=== PATIENT | female | born 1950 | race Caucasian/White ===

== ENCOUNTER 2016-08-13 03:12 | Emergency (ER) | payer OTHER ==
--- NOTE | 2016-08-13 05:01 | ED CLINICAL REPORT ---
Clinical Report - Physicians/Mid Levels Merged With [facility] [address] [place] [place] [address] 08/13/2016 3:24 Patient: BRYAN GIBSON Time Seen: 03:37; initial patient contact. Arrived- By ambulance. Historian- patient. HISTORY OF PRESENT ILLNESS Chief Complaint: FALL. Location of injuries- head and neck. The injury occurred just prior to arrival. Fell and landed on the ground; tripped (Sleep walking). Occurred at home. The patient complains of moderate pain. The patient sustained a moderate blow to the head and complains of mild neck pain. PAST HISTORY Bladder Infections. Kidney Infection. Thyroid Disease. SOCIAL HISTORY Smoker - current status unknown. No alcohol use or drug use. ADDITIONAL NOTES The nursing notes have been reviewed with agreement regarding the chief complaint, PMH and patient medications and allergies. PHYSICAL EXAM Vital Signs: 08/13/2016 03:25 BP: 110/71. HR: 60. RR: 16. O2 saturation: 96%. Temp: 97.7 F. Have been reviewed as normal. Appearance: Alert. Oriented X3. No acute distress. Head: No Barlow's sign or raccoon eyes. Right gnosticist: mild erythema and swelling, moderate tenderness and small ecchymosis of the anterior aspect of the right gnosticist. No laceration or deformity. Eyes: Pupils equal, round and reactive to light. EOM intact. ENT: No dental injury. Pharynx normal. Neck: No pain with movement of head/neck. No muscle spasm in the neck. Painless ROM. No vertebral tenderness. Mild soft tissue tenderness in the left upper, mid and lower neck area. CVS: Heart sounds normal. Pulses normal. Respiratory: No respiratory distress. Breath sounds normal. Back: No tenderness. ROM normal. Skin: Skin intact. Skin warm and dry. Normal skin color. Normal skin turgor. Extremities: Extremities atraumatic. Neuro: Oriented X 3. No motor deficit. No sensory deficit. LABS, X-RAYS, AND EKG CT Head: Normal study. No acute changes. No bony abnormalities, no hemorrhage, no intracranial mass, no midline shift and no hydrocephalus. No atrophy. Head CT performed without contrast. Prior studies were not available for comparison. The study was interpreted by the radiologist and discussed with the radiologist. Interpretation time: 04:46. PROGRESS AND PROCEDURES Course of Care: 08/13/2016 03:25 BP: 110/71. HR: 60. RR: 16. O2 saturation: 96%. Temp: 97.7 F. Vital Signs: have been reviewed as normal. Disposition: Discharged home in good condition. Condition: good. CLINICAL IMPRESSION Single contusion with soft tissue hematoma to the head. INSTRUCTIONS Apply ice for 20 minutes four times a day. Don't apply ice directly to skin. Your Current Medications: CONTINUE TAKING THE FOLLOWING MEDICATIONS: Amitiza Oral. Bactrim Oral. Furosemide Oral. Levothyroxine Sodium Oral. Omeprazole Oral. Oxycodone-Acetaminophen Oral. Follow-up: Follow up with your doctor in about two days. Call for an appointment. Screening today revealed the patient's blood pressure to be in the normal range. (Electronically signed by Maksim Contreras Dr. 08/13/2016 5:04)
--- NOTE | 2016-08-13 05:01 | ED NURSING NOTES ---
Clinical Report - Nurses [facility] [address] [place] [address] 08/13/2016 3:24 Patient: BRYAN GIBSON TRIAGE Triage time 03:Aug 13 2016. Acuity: LEVEL 4. --03:29 Ezio Higgins R.N. 03:25 08/13/16. BP: 110/71. HR: 60. RR: 16. O2 saturation: 96%. Temp: 97.7 F. Pain level now 08/24. --03:29 Ezio Higgins R.N. Acuity: LEVEL 3. --03:52 Ezio Higgins R.N. Chief Complaint: FALL, landed on their head. --05:24 Ezio Higgins R.N. Weight: 47.6 kg estimated. Height/Length: 108 inches Estimated. BMI: 6.3. --03:27 Ezio Higgins R.N. Medications Furosemide Oral. --03:27 Ezio Higgins R.N. Oxycodone-Acetaminophen Oral. --03:28 Ezio Higgins R.N. Levothyroxine Sodium Oral. --03:28 Ezio Higgins R.N. Bactrim Oral. --03:28 Ezio Higgins R.N. Omeprazole Oral. --03:52 Ezio Higgins R.N. Amitiza Oral. --03:52 Ezio Higgins R.N. Allergies Cipro. --03:51 Ezio Higgins R.N. History Arrived by EMS. Historian: patient. ( Pt arrives via ems report of GLF fall while sleep walking. Pt rembers waking up right before falling report of increased stress in life.). SOCIAL HX: No alcohol use or drug use. --03:29 Ezio Higgins R.N. SOCIAL HX: Never smoker. Alcohol use; consumes wine occasionally. No drug use. --03:52 Ezio Higgins R.N. PROBLEMS: Bladder Infections. Kidney Infection. Thyroid Disease. --03:29 Ezio Higgins R.N. Interventions To treatment room. --03:29 Ezio Higgins R.N. ID band on patient. To treatment room. --03:52 Ezio Higgins R.N. PHYSICAL ASSESSMENT GENERAL / NEURO / PSYCH: Alert. Oriented X 4. Appears in no acute distress. HEENT: Pupils equal, round and reactive to light. Head non-tender. RESPIRATORY: Respirations not labored. SKIN: Skin is dry. ( Lower extrem. +2 pitting edema, hot to touch). --03:30 Ezio Higgins R.N. NURSING PROGRESS NOTES No c-collar applied. Not placed on backboard. Patient gowned. Reassurance given. Side rails up x 1. Bed placed in lowest position. Brakes of bed on. --03:30 Ezio Higgins R.N. DISPOSITION / DISCHARGE Departure time: 0507 05:21 Aug 13 2016. Condition at departure: stable. No learning barriers present. Discharge instructions provided and reviewed with the patient. Reviewed medication(s) information. Patient verbalized understanding. Written instructions provided in Chinese. The patient was discharged by the physician. She was discharged home and accompanied by blueprint blocker. She left the Emergency Department ambulatory and via private vehicle. Snap Shearer driving. ( Pt ambulated on discharge steady on her feet pt verbalized understanding of discharge instructions and follow up care). --05:24 Ezio Higgins R.N. 05:11 08/13/16. BP: 101/55. HR: 66. RR: 18. O2 saturation: 97%. Temp: 97.9 F. --05:24 Ezio Higgins R.N. Locked/Released at 08/14/2016 2:59 by Ezio Higgins R.N.
--- NOTE | 2016-08-13 05:01 | ED CLINICAL REPORT ---
Clinical Report - Physicians/Mid Levels Located Within [facility] [address] [place] [place] [address] 08/13/2016 3:24 Patient: BRYAN GIBSON Time Seen: 03:37; initial patient contact. Arrived- By ambulance. Historian- patient. HISTORY OF PRESENT ILLNESS Chief Complaint: FALL. Location of injuries- head and neck. The injury occurred just prior to arrival. Fell and landed on the ground; tripped (Sleep walking). Occurred at home. The patient complains of moderate pain. The patient sustained a moderate blow to the head and complains of mild neck pain. PAST HISTORY Bladder Infections. Kidney Infection. Thyroid Disease. SOCIAL HISTORY Smoker - current status unknown. No alcohol use or drug use. ADDITIONAL NOTES The nursing notes have been reviewed with agreement regarding the chief complaint, PMH and patient medications and allergies. PHYSICAL EXAM Vital Signs: 08/13/2016 03:25 BP: 110/71. HR: 60. RR: 16. O2 saturation: 96%. Temp: 97.7 F. Have been reviewed as normal. Appearance: Alert. Oriented X3. No acute distress. Head: No Barlow's sign or raccoon eyes. Right yazidism: mild erythema and swelling, moderate tenderness and small ecchymosis of the anterior aspect of the right yazidism. No laceration or deformity. Eyes: Pupils equal, round and reactive to light. EOM intact. ENT: No dental injury. Pharynx normal. Neck: No pain with movement of head/neck. No muscle spasm in the neck. Painless ROM. No vertebral tenderness. Mild soft tissue tenderness in the left upper, mid and lower neck area. CVS: Heart sounds normal. Pulses normal. Respiratory: No respiratory distress. Breath sounds normal. Back: No tenderness. ROM normal. Skin: Skin intact. Skin warm and dry. Normal skin color. Normal skin turgor. Extremities: Extremities atraumatic. Neuro: Oriented X 3. No motor deficit. No sensory deficit. LABS, X-RAYS, AND EKG CT Head: Normal study. No acute changes. No bony abnormalities, no hemorrhage, no intracranial mass, no midline shift and no hydrocephalus. No atrophy. Head CT performed without contrast. Prior studies were not available for comparison. The study was interpreted by the radiologist and discussed with the radiologist. Interpretation time: 04:46. PROGRESS AND PROCEDURES Course of Care: 08/13/2016 03:25 BP: 110/71. HR: 60. RR: 16. O2 saturation: 96%. Temp: 97.7 F. Vital Signs: have been reviewed as normal. Disposition: Discharged home in good condition. Condition: good. CLINICAL IMPRESSION Single contusion with soft tissue hematoma to the head. INSTRUCTIONS Apply ice for 20 minutes four times a day. Don't apply ice directly to skin. Your Current Medications: CONTINUE TAKING THE FOLLOWING MEDICATIONS: Amitiza Oral. Bactrim Oral. Furosemide Oral. Levothyroxine Sodium Oral. Omeprazole Oral. Oxycodone-Acetaminophen Oral. Follow-up: Follow up with your doctor in about two days. Call for an appointment. Screening today revealed the patient's blood pressure to be in the normal range. (Electronically signed by Maksim Contreras Dr. 08/13/2016 5:04)
--- NOTE | 2016-08-13 05:01 | ED NURSING NOTES ---
Clinical Report - Nurses [place] [facility] [address] [place] [address] 08/13/2016 3:24 Patient: BRYAN GIBSON TRIAGE Triage time 03:Aug 13 2016. Acuity: LEVEL 4. --03:29 Ezio Higgins R.N. 03:25 08/13/16. BP: 110/71. HR: 60. RR: 16. O2 saturation: 96%. Temp: 97.7 F. Pain level now 08/24. --03:29 Ezio Higgins R.N. Acuity: LEVEL 3. --03:52 Ezio Higgins R.N. Chief Complaint: FALL, landed on their head. --05:24 Ezio Higgins R.N. Weight: 47.6 kg estimated. Height/Length: 108 inches Estimated. BMI: 6.3. --03:27 Ezio Higgins R.N. Medications Furosemide Oral. --03:27 Ezio Higgins R.N. Oxycodone-Acetaminophen Oral. --03:28 Ezio Higgins R.N. Levothyroxine Sodium Oral. --03:28 Ezio Higgins R.N. Bactrim Oral. --03:28 Ezio Higgins R.N. Omeprazole Oral. --03:52 Ezio Higgins R.N. Amitiza Oral. --03:52 Ezio Higgins R.N. Allergies Cipro. --03:51 Ezio Higgins R.N. History Arrived by EMS. Historian: patient. ( Pt arrives via ems report of GLF fall while sleep walking. Pt rembers waking up right before falling report of increased stress in life.). SOCIAL HX: No alcohol use or drug use. --03:29 Ezio Higgins R.N. SOCIAL HX: Never smoker. Alcohol use; consumes wine occasionally. No drug use. --03:52 Ezio Higgins R.N. PROBLEMS: Bladder Infections. Kidney Infection. Thyroid Disease. --03:29 Ezio Higgins R.N. Interventions To treatment room. --03:29 Ezio Higgins R.N. ID band on patient. To treatment room. --03:52 Ezio Higgins R.N. PHYSICAL ASSESSMENT GENERAL / NEURO / PSYCH: Alert. Oriented X 4. Appears in no acute distress. HEENT: Pupils equal, round and reactive to light. Head non-tender. RESPIRATORY: Respirations not labored. SKIN: Skin is dry. ( Lower extrem. +2 pitting edema, hot to touch). --03:30 Ezio Higgins R.N. NURSING PROGRESS NOTES No c-collar applied. Not placed on backboard. Patient gowned. Reassurance given. Side rails up x 1. Bed placed in lowest position. Brakes of bed on. --03:30 Ezio Higgins R.N. DISPOSITION / DISCHARGE Departure time: 0507 05:21 Aug 13 2016. Condition at departure: stable. No learning barriers present. Discharge instructions provided and reviewed with the patient. Reviewed medication(s) information. Patient verbalized understanding. Written instructions provided in Malay. The patient was discharged by the physician. She was discharged home and accompanied by box coverer hand. She left the Emergency Department ambulatory and via private vehicle. Teacher [employer] driving. ( Pt ambulated on discharge steady on her feet pt verbalized understanding of discharge instructions and follow up care). --05:24 Ezio Higgins R.N. 05:11 08/13/16. BP: 101/55. HR: 66. RR: 18. O2 saturation: 97%. Temp: 97.9 F. --05:24 Ezio Higgins R.N. Locked/Released at 08/14/2016 2:59 by Ezio Higgins R.N.
--- NOTE | 2016-08-13 05:01 | ED ORDER SUMMARY ---
..... Patient: BRYAN GIBSON OrderSheet [facility] VisitID: [id number] [address] [place] [address] 65y, F Registration Date/Time: 08/13/2016 ORDER SHEET Weight: 47.6 kg (estimated) Allergies: Cipro GENERAL ORDERS: CT Head wo Cont Urgent (03:59 08/13/2016 Tong Moreno) (Ack 4:01 Bo Limon) MEDICATION ORDERS: IV FLUIDS: ORDER SHEET NOTES: [Electronically signed by Maksim Contreras Dr. (05:04 08/13/2016)] [Electronically signed by Ezio Higgins R.N. (02:59 08/14/2016)] [Electronically locked/signed by Ezio Higgins R.N. (02:59 08/14/2016)]
--- NOTE | 2016-08-13 05:01 | ED ORDER SUMMARY ---
..... Patient: BRYAN GIBSON OrderSheet [facility] VisitID: [id number] [address] [place] [address] 65y, F Registration Date/Time: 08/13/2016 ORDER SHEET Weight: 47.6 kg (estimated) Allergies: Cipro GENERAL ORDERS: CT Head wo Cont Urgent (03:59 08/13/2016 Tong Moreno) (Ack 4:01 Bo Limon) MEDICATION ORDERS: IV FLUIDS: ORDER SHEET NOTES: [Electronically signed by Maksim Contreras Dr. (05:04 08/13/2016)] [Electronically signed by Ezio Higgins R.N. (02:59 08/14/2016)] [Electronically locked/signed by Ezio Higgins R.N. (02:59 08/14/2016)]
--- NOTE | 2016-08-13 07:14 | DIAGNOSTIC IMAGING REPORT ---
PROCEDURE: CT HEAD WITHOUT CONTRAST INDICATION: Ground level fall with head injury, initial encounter TECHNIQUE: Noncontrast axial images with sagittal and coronal reformations. COMPARISON: None. FINDINGS: Sulci, ventricular system, and brain parenchyma are normal. No evidence of acute intracranial process. Visualized mastoids and sinuses are clear. IMPRESSION: 1. Negative non-enhanced head CT. 2. Preliminary report submitted by Dr. Patel, [facility] radiology
--- NOTE | 2016-08-14 02:59 | ED MAR SUMMARY ---
..... Medication Administration Record [facility] [address], [place] [id number] Patient: BRYAN GIBSON Visit ID: [id number] 65y, F Weight: 47.6 kg Height/Length: 108 in BMI: 6.3 ALLERGIES: Cipro
--- NOTE | 2016-08-14 02:59 | ED DISCHARGE INSTRUCTIONS ---
Patient: BRYAN GIBSON General Instructions [facility] VisitID: [id number] [place] [address] 65y, F Registration Date/Time: 08/13/2016 Single contusion with soft tissue hematoma to the head. INSTRUCTIONS Apply ice for 20 minutes four times a day. Don't apply ice directly to skin. Your Current Medications: CONTINUE TAKING THE FOLLOWING MEDICATIONS: Amitiza Oral. Bactrim Oral. Furosemide Oral. Levothyroxine Sodium Oral. Omeprazole Oral. Oxycodone-Acetaminophen Oral. Follow-up: Follow up with your doctor in about two days. Call for an appointment. Screening today revealed the patient's blood pressure to be in the normal range. ADDITIONAL INFORMATION Contusion,Soft Tissue You have a CONTUSION, which is a bruise with swelling and some bleeding under the skin. There are no broken bones. This injury takes a few days to a few weeks to heal. Home Care: 1) Keep the injured part elevated to reduce pain and swelling. This is especially important during the first 48 hours. 2) Make an ice pack (ice cubes in a plastic bag, wrapped in a towel) and apply for 20 minutes every 1-2 hours the first day. Continue this 3-4 times a day until the pain and swelling goes away. 3) You may use acetaminophen (Tylenol) or ibuprofen (Motrin, Advil) to control pain, unless another pain medicine was prescribed. [ NOTE : If you have chronic liver or kidney disease or ever had a stomach ulcer or GI bleeding, talk with your doctor before using these medicines.] Follow Up with your doctor or this facility if you are not improving within the next THREE days. [NOTE: If X-rays were taken, they will be reviewed by a radiologist. You will be notified of any new findings that may affect your care.] Get Prompt Medical Attention if any of the following occur: -- Pain or swelling increases -- Injured arm or leg becomes cold, blue, numb or tingly -- Redness, warmth or drainage from the skin You have been given the following additional information: Contusion, Soft Tissue (Electronically signed by Maksim Contreras Dr. 08/13/2016 5:04)
--- NOTE | 2016-08-14 02:59 | ED DISCHARGE INSTRUCTIONS ---
Patient: BRYAN GIBSON General Instructions Merged With [facility] VisitID: [id number] [place] [address] 65y, F Registration Date/Time: 08/13/2016 Single contusion with soft tissue hematoma to the head. INSTRUCTIONS Apply ice for 20 minutes four times a day. Don't apply ice directly to skin. Your Current Medications: CONTINUE TAKING THE FOLLOWING MEDICATIONS: Amitiza Oral. Bactrim Oral. Furosemide Oral. Levothyroxine Sodium Oral. Omeprazole Oral. Oxycodone-Acetaminophen Oral. Follow-up: Follow up with your doctor in about two days. Call for an appointment. Screening today revealed the patient's blood pressure to be in the normal range. ADDITIONAL INFORMATION Contusion,Soft Tissue You have a CONTUSION, which is a bruise with swelling and some bleeding under the skin. There are no broken bones. This injury takes a few days to a few weeks to heal. Home Care: 1) Keep the injured part elevated to reduce pain and swelling. This is especially important during the first 48 hours. 2) Make an ice pack (ice cubes in a plastic bag, wrapped in a towel) and apply for 20 minutes every 1-2 hours the first day. Continue this 3-4 times a day until the pain and swelling goes away. 3) You may use acetaminophen (Tylenol) or ibuprofen (Motrin, Advil) to control pain, unless another pain medicine was prescribed. [ NOTE : If you have chronic liver or kidney disease or ever had a stomach ulcer or GI bleeding, talk with your doctor before using these medicines.] Follow Up with your doctor or this facility if you are not improving within the next THREE days. [NOTE: If X-rays were taken, they will be reviewed by a radiologist. You will be notified of any new findings that may affect your care.] Get Prompt Medical Attention if any of the following occur: -- Pain or swelling increases -- Injured arm or leg becomes cold, blue, numb or tingly -- Redness, warmth or drainage from the skin You have been given the following additional information: Contusion, Soft Tissue (Electronically signed by Maksim Contreras Dr. 08/13/2016 5:04)
--- NOTE | 2016-08-14 02:59 | ED MAR SUMMARY ---
..... Medication Administration Record [facility] [address] [place], [place] [id number] Patient: BRYAN GIBSON Visit ID: [id number] 65y, F Weight: 47.6 kg Height/Length: 108 in BMI: 6.3 ALLERGIES: Cipro
--- NOTE | 2016-08-14 03:00 | ED MED RECONCILIATION SUMMARY ---
Patient: BRYAN GIBSON Medication Reconciliation Report [facility] VisitID: [id number] [address] [place] [address] 65y, F Registration Date/Time: 08/13/2016 Weight: 47.6 kg Height/Length: 108 in. BMI: 6.3 ALLERGIES: Cipro The patient's Home Medications are listed below: CONTINUE TAKING THE FOLLOWING MEDICATIONS: Amitiza Oral Bactrim Oral Furosemide Oral Levothyroxine Sodium Oral Omeprazole Oral Oxycodone-Acetaminophen Oral The source(s) of the original Home Medication information: Not obtained. The following Medications were given to the patient in the Emergency Department: None. The following Medications were prescribed to the patient: None.
--- NOTE | 2016-08-14 03:00 | ED MED RECONCILIATION SUMMARY ---
Patient: BRYAN GIBSON Medication Reconciliation Report [facility] VisitID: [id number] [address] [place] [address] 65y, F Registration Date/Time: 08/13/2016 Weight: 47.6 kg Height/Length: 108 in. BMI: 6.3 ALLERGIES: Cipro The patient's Home Medications are listed below: CONTINUE TAKING THE FOLLOWING MEDICATIONS: Amitiza Oral Bactrim Oral Furosemide Oral Levothyroxine Sodium Oral Omeprazole Oral Oxycodone-Acetaminophen Oral The source(s) of the original Home Medication information: Not obtained. The following Medications were given to the patient in the Emergency Department: None. The following Medications were prescribed to the patient: None.
== END 2016-08-13 05:07 | disposition home or self-care (01) ==
LOC: ED SRH 03:12
DX: S00.83XA Contusion of other part of head, initial encounter (principal); M54.2 Cervicalgia; W01.10XA Fall on same level from slipping, tripping and stumbling with subsequent striking against unspecified object, initial encounter; Y99.9 Unspecified external cause status; Y93.89 Activity, other specified; Y92.009 Unspecified place in unspecified non-institutional (private) residence as the place of occurrence of the external cause; Z79.891 Long term (current) use of opiate analgesic; Z79.2 Long term (current) use of antibiotics; Z88.1 Allergy status to other antibiotic agents

== ENCOUNTER 2016-09-04 14:18 | Emergency (ER) | payer OTHER ==
--- NOTE | 2016-09-04 17:19 | ED NURSING NOTES ---
Clinical Report - Nurses [facility] [address] [place] [address] 09/04/2016 14:21 Patient: BRYAN ODEN TRIAGE Triage time 14:31. Acuity: LEVEL 4. Chief Complaint: (SLEEP DISORDER). 14:32 09/04/16. 14:32 09/04/16. Alert. No acute distress. SEPSIS SCREEN: Sepsis Screen. Negative (no infection suspected/documented). EBONIE COMA SCORE: [place] Coma Scale: 15- eyes open spontaneously (4); best verbal response- oriented x 4 (5); best motor response- obeys commands (6). --14:50 Oscar Noguera R.N. 14:45 09/04/16. BP: 109/76. HR: 62. RR: 14. O2 saturation: 98% on room air. Temp: 98.1 F (oral). --14:50 Oscar Noguera R.N. Weight: 62.1 kg stated. Height/Length: 68 inches Per Patient. BMI: 20.8. --14:32 Oscar Noguera R.N. Medications Amitiza Oral. Bactrim Oral. Furosemide Oral (I ran out of this med). Levothyroxine Sodium Oral. Omeprazole Oral. Oxycodone-Acetaminophen Oral. --14:33 Oscar Noguera R.N. Medication/allergy information source: the patient and patient's family. --14:50 Oscar Noguera R.N. Allergies Cipro. --14:33 Oscar Noguera R.N. History Arrived by EMS. Historian: patient. Accompanied by family. Primary physician ([facility]). 14:32 09/04/16. ( Pt states she cannot tell if she is awake or asleep. Pt states she has been falling.). PAST MEDICAL HX: Immunizations: status is unknown. SOCIAL HX: Never smoker. Occasional alcohol use. No drug use. No infectious disease exposure. ABUSE ASSESSMENT: No report of abuse. FALL RISK ASSESSMENT: Fall risk assessment completed. No fall risk identified. NUTRITIONAL RISK ASSESSMENT: The nutritional risk assessment revealed no deficiencies. FUNCTIONAL ASSESSMENT: Functional assessment: no impairments noted. LEARNING NEEDS ASSESSMENT: The learning needs assessment revealed no barriers. SKIN INTEGRITY ASSESSMENT: Skin integrity risk assessment completed. No skin integrity risk identified. --14:50 Oscar Noguera R.N. PROBLEMS: Contusion. Bladder Infections. Kidney Infection. Thyroid Disease. --14:34 Oscar Noguera R.N. Renal Failure. --14:34 Oscar Noguera R.N. Esophageal Spasms. --14:36 Oscar Noguera R.N. Hydronephrosis. --14:37 Oscar Noguera R.N. ADDITIONAL SURGERIES: no known surgeries. Assessment 14:32 09/04/16. --14:50 Oscar Noguera R.N. Interventions 14:32 09/04/16. 14:32 09/04/16. ID and allergy band on patient. To treatment room. --14:50 Oscar Noguera R.N. PHYSICAL ASSESSMENT 14:35 09/04/16. Ambulatory to room. GENERAL / NEURO / PSYCH: Alert. Oriented X 4. RESPIRATORY: Respirations not labored. CVS: Capillary refill less than 2 seconds. SKIN: Skin is warm and dry. --14:35 Oscar Noguera R.N. 14:37 09/04/16. GI / : ( Pt has a leg bag due to hydronephrosis). --14:37 Oscar Noguera R.N. 14:53 09/04/16. CVS: ( LE bilat 2 plus pitting edema). --14:53 Oscar Noguera R.N. NURSING PROGRESS NOTES 14:35 09/04/16. The plan of care for this patient has been created. court monitor, pulse oximeter and NIBP monitor placed on patient; monitor alarms on. Patient gowned. Head of bed elevated. Reassurance given. Two patient identifiers checked. Call light placed in reach. Side rails up x 2. Bed placed in lowest position. Brakes of bed on. Brakes of chair on. --14:35 Oscar Noguera R.N. 14:35 09/04/16. Patient ready for evaluation- chart flagged and notification provided. --14:35 Oscar Noguera R.N. 15:08 09/04/2016 Site #1 started via IV in the left antecubital space with an 20g angiocath; one attempt. Blood drawn: rainbow set. Labeled in the presence of the patient and sent to the lab. Saline lock flushed with 10 mL saline. --15:08 Oscar Noguera R.N. 15:08 09/04/2016 One (1) unsuccessful IV access attempt including the right antecubital space. Applied bandaid and manual pressure. --15:13 Elvira Naranjo R.N. 16:03 09/04/16. --16:03 Oscar Noguera R.N. 16:03 09/04/16. BP: 116/72. HR: 80. RR: 12. O2 saturation: 100% on room air. --16:03 Oscar Noguera R.N. 16:54 09/04/16. Call light placed in reach. Bed placed in lowest position. Brakes of bed on. ED physician at the patient's bedside. --16:54 Elvira Naranjo R.N. 16:52 09/04/16. BP: 129/74 (regular adult cuff) taken on the left arm, while lying. HR: 73. RR: 14. O2 saturation: 100% on room air. --16:54 Elvira Naranjo R.N. DISPOSITION / DISCHARGE 17:30 09/04/2016 Site #1 removed upon discharge. Catheter intact. Bandage applied. --17:30 Oscar Noguera R.N. 17:30 09/04/16. Condition at departure: improved. The goals identified in the patient's plan of care were met. No learning barriers present. Discharge instructions provided and reviewed with care rep and the patient. Reviewed warnings. Reviewed medication(s). Treatments reviewed. Patient and care rep verbalized understanding. Written instructions provided in Maori. The patient was discharged by the physician. She was discharged home and accompanied by care rep. She left the Emergency Department ambulatory and via private vehicle. Jowl Trimmer driving. FALL RISK ASSESSMENT: Fall risk assessment completed. No fall risk identified. --17:31 Oscar Noguera R.N. 17:29 09/04/16. BP: 128/72. HR: 82. RR: 12. O2 saturation: 99% on room air. Temp: 98.2 F (oral). --17:31 Oscar Noguera R.N. 17:31 09/04/16. Departure time: 17:31. --17:31 Oscar Noguera R.N. Locked/Released at 09/04/2016 17:36 by Oscar Noguera R.N.
--- NOTE | 2016-09-04 17:19 | ED ORDER SUMMARY ---
..... Patient: BRYAN ODEN OrderSheet [facility] VisitID: [id number] [address] [place] [address] 65y, F Registration Date/Time: 09/04/2016 ORDER SHEET Weight: 62.1 kg (stated) Allergies: Cipro GENERAL ORDERS: UA-Culture if indicated Urgent (14:37 09/04/2016 JBoardley R.N. per protocol) (Ack 14:38 KHoerner) (14:45 JBoardley R.N.) Urine Drug Screen Urgent (14:37 09/04/2016 JBoardley R.N. per protocol) (Ack 14:38 KHoerner) (14:45 JBoardley R.N.) Production Specialist (Continuous) (14:51 09/04/2016 JBoardley R.N. per protocol) (14:51 JBoardley R.N.) CBC w Diff Urgent (14:51 09/04/2016 JBoardley R.N. per protocol) (Ack 14:57 KHoerner) (15:08 JBoardley R.N.) CMP Urgent (14:51 09/04/2016 JBoardley R.N. per protocol) (Ack 14:57 KHoerner) (15:08 JBoardley R.N.) Pulse oximeter (14:51 09/04/2016 JBoardley R.N. per protocol) (14:51 JBoardley R.N.) EKG - ER Stat (14:51 09/04/2016 JBoardley R.N. per protocol) (Ack 14:57 KHoerner) (Cancelled: Other15:01 JBoardley R.N.) Vitals (14:51 09/04/2016 JBoardley R.N. per protocol) (14:51 JBoardley R.N.) MEDICATION ORDERS: IV FLUIDS: IV Saline Lock (14:51 09/04/2016 JBoardley R.N. per protocol) (Ack 14:52 JBoardley R.N.) (15:08 JBoardley R.N.) ORDER SHEET NOTES: [Electronically signed by Oscar Noguera R.N. (17:36 09/04/2016)] [Electronically signed by Maksim Contreras Dr. (20:50 09/05/2016)] [Electronically locked/signed by Oscar Noguera R.N. (17:36 09/04/2016)]
--- NOTE | 2016-09-04 17:19 | ED CLINICAL REPORT ---
Clinical Report - Physicians/Mid Levels [facility] [address] [place] [address] 09/04/2016 14:21 Patient: BRYAN ODEN Time Seen: 14:50; initial patient contact. Arrived- By ambulance. Historian- patient. HISTORY OF PRESENT ILLNESS Chief Complaint: CHANGED MENTAL STATUS. The patient has been confused. This started several weeks ago and is still present (persistent). It was gradual in onset and has been waxing/waning. No history of chronic dementia. No change in diabetic routine or alcohol recently. History of recent drug use Pt taking 30-40 mg Oxycodone/day. She admits she forgets if she has taken doses all the time. The patient has had a recent fall. Usually is alert and oriented X3 and usually has normal mobility. ("sleepwalking"). Similar symptoms previously: Many times. Recent medical care: The patient was seen recently at this facility in the emergency department. ( Normal w/u, including head CT ~ 2 weeks ago.). REVIEW OF SYSTEMS No fever, headache, head injury, dizziness or difficulty breathing. No blurred vision, nausea or vomiting. All systems otherwise negative, except as recorded above. PAST HISTORY ( Contusion. Bladder Infections. Kidney Infection. Thyroid Disease. Renal Failure. Esophageal Spasms. Hydronephrosis.). Additional Surgeries: no known surgeries. Medications: Amitiza Oral. Bactrim Oral. Furosemide Oral (I ran out of this med). Levothyroxine Sodium Oral. Omeprazole Oral. Oxycodone-Acetaminophen Oral. Allergies: Cipro. SOCIAL HISTORY Never smoker. No alcohol use or drug use. ADDITIONAL NOTES The nursing notes have been reviewed with agreement regarding the chief complaint, PMH and patient medications and allergies. PHYSICAL EXAM Vital Signs: 09/04/2016 14:45 BP: 109/76. HR: 62. RR: 14. O2 saturation: 98%. Temp: 98.1 F. Have been reviewed as normal. Appearance: Alert. No acute distress. Head: Head atraumatic. Eyes: Pupils equal, round and reactive to light. ENT: Normal ENT inspection. Airway intact. Moist mucous membranes. Pharynx normal. Neck: Normal inspection. Neck supple. CVS: Normal heart rate and rhythm. Heart sounds normal. Respiratory: No respiratory distress. Breath sounds normal. Abdomen: Soft and nontender. Skin: Skin warm and dry. Normal skin color. No rash. Extremities: No lower extremity edema. Neuro: Alert. Oriented X 3. Mood/affect normal. Speech normal. Cranial nerves normal (as tested). No cerebellar findings. No motor deficit. No sensory deficit. Reflexes normal. LABS, X-RAYS, AND EKG Laboratory Tests: CBC w Diff: (MILLICENT: 09/04/2016 15:07) ( MsgRcvd 09/04/2016 15:23) Final results Test Result Flag Units (Reference) WHITE BLOOD COUNT 5.7 K/uL (4.5-11.5) RED BLOOD COUNT 3.92 L M/uL (4.00-5.20) HEMOGLOBIN 10.9 L gm/dL (12.0-16.0) HEMATOCRIT 33.8 L % (36.0-46.0) MEAN CELL VOLUME 86 fL (80-100) MEAN CORPUSCULAR HGB 28 pg (26-34) MEAN CORPUSCULAR HGB CONC 32 g/dL (31-37) RED CELL DISTRIBUTION WIDTH 14.8 % (11.6-14.8) PLATELET COUNT 259 K/uL (150-400) NEUTROPHIL % 45.3 L % (50-75) LYMPH % 41.9 H % (25-40) MONO % 9.1 % (3-14) EOSINOPHIL % 3.2 % (0-4) BASOPHIL % 0.5 % (0-2) CMP: (MILLICENT: 09/04/2016 15:07) ( MsgRcvd 09/04/2016 15:43) Final results Test Result Flag Units (Reference) GLUCOSE 85 mg/dL (70-110) BUN 11 mg/dL (7-18) CREATININE 1.0 mg/dL (0.6-1.3) Estimated GFR 58.78 mL/min Estimated GFR- >60 mL/min Note: Persistent reduction over 3 months in eGFR<60 mL/min/1.73 m2 defines CKD. Patients with eGFR values>=60 mL/min/1.73 m2 may also have CKD if evidence ofpersistent proteinuria. Additional information may be foundat www.kidney.org. SODIUM 143 mmol/L (136-145) POTASSIUM 3.5 mmol/L (3.5-5.1) CHLORIDE 106 mmol/L (98-107) CARBON DIOXIDE 27 mmol/L (21-32) CALCIUM 9.0 mg/dL (8.5-10.1) TOTAL PROTEIN 6.9 g/dL (6.4-8.2) ALBUMIN 3.5 g/dL (3.3-5.0) BILIRUBIN, TOTAL 0.2 mg/dL (0.0-1.0) ALKALINE PHOSPHATASE 67 U/L (46-116) AST (SGOT) 12 L U/L (15-37) ALT (SGPT) 20 U/L (12-78) . PROGRESS AND PROCEDURES Disposition: Discharged home in good condition. Condition: good. CLINICAL IMPRESSION Fall on same level by stumbling. INSTRUCTIONS (Discuss weaning your pain medication). Your Current Medications: CONTINUE TAKING THE FOLLOWING MEDICATIONS: Amitiza Oral. Bactrim Oral. Furosemide Oral : I ran out of this med. Levothyroxine Sodium Oral. Omeprazole Oral. Oxycodone-Acetaminophen Oral. Follow-up: Follow up with your doctor in about two days. Call for an appointment. Screening today revealed the patient's blood pressure to be in the normal range. (Electronically signed by Maksim Contreras Dr. 09/05/2016 20:50)
--- NOTE | 2016-09-04 17:19 | ED ORDER SUMMARY ---
..... Patient: BRYAN ODEN OrderSheet [facility] VisitID: [id number] [address] [place] [address] 65y, F Registration Date/Time: 09/04/2016 ORDER SHEET Weight: 62.1 kg (stated) Allergies: Cipro GENERAL ORDERS: UA-Culture if indicated Urgent (14:37 09/04/2016 JBoardley R.N. per protocol) (Ack 14:38 KHoerner) (14:45 JBoardley R.N.) Urine Drug Screen Urgent (14:37 09/04/2016 JBoardley R.N. per protocol) (Ack 14:38 KHoerner) (14:45 JBoardley R.N.) [employer] (Continuous) (14:51 09/04/2016 JBoardley R.N. per protocol) (14:51 JBoardley R.N.) CBC w Diff Urgent (14:51 09/04/2016 JBoardley R.N. per protocol) (Ack 14:57 KHoerner) (15:08 JBoardley R.N.) CMP Urgent (14:51 09/04/2016 JBoardley R.N. per protocol) (Ack 14:57 KHoerner) (15:08 JBoardley R.N.) Pulse oximeter (14:51 09/04/2016 JBoardley R.N. per protocol) (14:51 JBoardley R.N.) EKG - ER Stat (14:51 09/04/2016 JBoardley R.N. per protocol) (Ack 14:57 KHoerner) (Cancelled: Other15:01 JBoardley R.N.) Vitals (14:51 09/04/2016 JBoardley R.N. per protocol) (14:51 JBoardley R.N.) MEDICATION ORDERS: IV FLUIDS: IV Saline Lock (14:51 09/04/2016 JBoardley R.N. per protocol) (Ack 14:52 JBoardley R.N.) (15:08 JBoardley R.N.) ORDER SHEET NOTES: [Electronically signed by Oscar Noguera R.N. (17:36 09/04/2016)] [Electronically signed by Maksim Contreras Dr. (20:50 09/05/2016)] [Electronically locked/signed by Oscar Noguera R.N. (17:36 09/04/2016)]
--- NOTE | 2016-09-04 17:19 | ED NURSING NOTES ---
Clinical Report - Nurses [facility] [address] [place] [address] 09/04/2016 14:21 Patient: BRYAN ODEN TRIAGE Triage time 14:31. Acuity: LEVEL 4. Chief Complaint: (SLEEP DISORDER). 14:32 09/04/16. 14:32 09/04/16. Alert. No acute distress. SEPSIS SCREEN: Sepsis Screen. Negative (no infection suspected/documented). EBONIE COMA SCORE: [place] Coma Scale: 15- eyes open spontaneously (4); best verbal response- oriented x 4 (5); best motor response- obeys commands (6). --14:50 Oscar Noguera R.N. 14:45 09/04/16. BP: 109/76. HR: 62. RR: 14. O2 saturation: 98% on room air. Temp: 98.1 F (oral). --14:50 Oscar Noguera R.N. Weight: 62.1 kg stated. Height/Length: 68 inches Per Patient. BMI: 20.8. --14:32 Oscar Noguera R.N. Medications Amitiza Oral. Bactrim Oral. Furosemide Oral (I ran out of this med). Levothyroxine Sodium Oral. Omeprazole Oral. Oxycodone-Acetaminophen Oral. --14:33 Oscar Noguera R.N. Medication/allergy information source: the patient and patient's family. --14:50 Oscar Noguera R.N. Allergies Cipro. --14:33 Oscar Noguera R.N. History Arrived by EMS. Historian: patient. Accompanied by family. Primary physician ([facility]). 14:32 09/04/16. ( Pt states she cannot tell if she is awake or asleep. Pt states she has been falling.). PAST MEDICAL HX: Immunizations: status is unknown. SOCIAL HX: Never smoker. Occasional alcohol use. No drug use. No infectious disease exposure. ABUSE ASSESSMENT: No report of abuse. FALL RISK ASSESSMENT: Fall risk assessment completed. No fall risk identified. NUTRITIONAL RISK ASSESSMENT: The nutritional risk assessment revealed no deficiencies. FUNCTIONAL ASSESSMENT: Functional assessment: no impairments noted. LEARNING NEEDS ASSESSMENT: The learning needs assessment revealed no barriers. SKIN INTEGRITY ASSESSMENT: Skin integrity risk assessment completed. No skin integrity risk identified. --14:50 Oscar Noguera R.N. PROBLEMS: Contusion. Bladder Infections. Kidney Infection. Thyroid Disease. --14:34 Oscar Noguera R.N. Renal Failure. --14:34 Oscar Noguera R.N. Esophageal Spasms. --14:36 Oscar Noguera R.N. Hydronephrosis. --14:37 Oscar Noguera R.N. ADDITIONAL SURGERIES: no known surgeries. Assessment 14:32 09/04/16. --14:50 Oscar Noguera R.N. Interventions 14:32 09/04/16. 14:32 09/04/16. ID and allergy band on patient. To treatment room. --14:50 Oscar Noguera R.N. PHYSICAL ASSESSMENT 14:35 09/04/16. Ambulatory to room. GENERAL / NEURO / PSYCH: Alert. Oriented X 4. RESPIRATORY: Respirations not labored. CVS: Capillary refill less than 2 seconds. SKIN: Skin is warm and dry. --14:35 Oscar Noguera R.N. 14:37 09/04/16. GI / : ( Pt has a leg bag due to hydronephrosis). --14:37 Oscar Noguera R.N. 14:53 09/04/16. CVS: ( LE bilat 2 plus pitting edema). --14:53 Oscar Noguera R.N. NURSING PROGRESS NOTES 14:35 09/04/16. The plan of care for this patient has been created. road contractor, pulse oximeter and NIBP monitor placed on patient; monitor alarms on. Patient gowned. Head of bed elevated. Reassurance given. Two patient identifiers checked. Call light placed in reach. Side rails up x 2. Bed placed in lowest position. Brakes of bed on. Brakes of chair on. --14:35 Oscar Noguera R.N. 14:35 09/04/16. Patient ready for evaluation- chart flagged and notification provided. --14:35 Oscar Noguera R.N. 15:08 09/04/2016 Site #1 started via IV in the left antecubital space with an 20g angiocath; one attempt. Blood drawn: rainbow set. Labeled in the presence of the patient and sent to the lab. Saline lock flushed with 10 mL saline. --15:08 Oscar Noguera R.N. 15:08 09/04/2016 One (1) unsuccessful IV access attempt including the right antecubital space. Applied bandaid and manual pressure. --15:13 Elvira Naranjo R.N. 16:03 09/04/16. --16:03 Oscar Noguera R.N. 16:03 09/04/16. BP: 116/72. HR: 80. RR: 12. O2 saturation: 100% on room air. --16:03 Oscar Noguera R.N. 16:54 09/04/16. Call light placed in reach. Bed placed in lowest position. Brakes of bed on. ED physician at the patient's bedside. --16:54 Elvira Naranjo R.N. 16:52 09/04/16. BP: 129/74 (regular adult cuff) taken on the left arm, while lying. HR: 73. RR: 14. O2 saturation: 100% on room air. --16:54 Elvira Naranjo R.N. DISPOSITION / DISCHARGE 17:30 09/04/2016 Site #1 removed upon discharge. Catheter intact. Bandage applied. --17:30 Oscar Noguera R.N. 17:30 09/04/16. Condition at departure: improved. The goals identified in the patient's plan of care were met. No learning barriers present. Discharge instructions provided and reviewed with computer science teacher and the patient. Reviewed warnings. Reviewed medication(s). Treatments reviewed. Patient and computer science teacher verbalized understanding. Written instructions provided in Kazakh. The patient was discharged by the physician. She was discharged home and accompanied by computer science teacher. She left the Emergency Department ambulatory and via private vehicle. [employer] driving. FALL RISK ASSESSMENT: Fall risk assessment completed. No fall risk identified. --17:31 Oscar Noguera R.N. 17:29 09/04/16. BP: 128/72. HR: 82. RR: 12. O2 saturation: 99% on room air. Temp: 98.2 F (oral). --17:31 Oscar Noguera R.N. 17:31 09/04/16. Departure time: 17:31. --17:31 Oscar Noguera R.N. Locked/Released at 09/04/2016 17:36 by Oscar Noguera R.N.
--- NOTE | 2016-09-05 20:50 | ED MAR SUMMARY ---
..... Medication Administration Record [facility] [address] [place], [place] [id number] Patient: BRYAN ODEN Visit ID: [id number] 65y, F Weight: 62.1 kg Height/Length: 68 in BMI: 20.8 ALLERGIES: Cipro
--- NOTE | 2016-09-05 20:50 | ED DISCHARGE INSTRUCTIONS ---
Patient: BRYAN ODEN General Instructions [facility] VisitID: [id number] [address] [place] [address] 65y, F Registration Date/Time: 09/04/2016 Fall on same level by stumbling. INSTRUCTIONS (Discuss weaning your pain medication). Your Current Medications: CONTINUE TAKING THE FOLLOWING MEDICATIONS: Amitiza Oral. Bactrim Oral. Furosemide Oral : I ran out of this med. Levothyroxine Sodium Oral. Omeprazole Oral. Oxycodone-Acetaminophen Oral. Follow-up: Follow up with your doctor in about two days. Call for an appointment. Screening today revealed the patient's blood pressure to be in the normal range. ADDITIONAL INFORMATION Fall, Uncertain Cause You have had a fall today. but the cause of your fall is not certain. Falls can occur due to slipping, tripping or losing your balance. A fall can also occur from a fainting spell or seizure. Because the cause of your fall today is not certain, it is possible that a fainting spell or seizure was the cause. This means that it could happen again, without warning. If you fall again, without a cause, then you should return to this facility promptly to have further tests. Otherwise, follow up with your doctor as explained below. Home Care: 1) Rest today and resume your normal activities as soon as you are feeling back to normal. It is best to remain with someone who can check on you for the next 24 hours to watch for another episode of falling. 2) If you were injured during the fall, follow the advice from your doctor regarding care of your injury. 3) If you become light-headed or dizzy, lie down immediately or sit and lean forward with your head down. 4) As a precaution, do not drive a car or operate dangerous equipment, do not take a bath alone (use a shower instead) and do not swim alone until you see your doctor. A condition causing fainting or seizures must be ruled out before resuming these activities. 5)You may use acetaminophen (Tylenol) or ibuprofen (Motrin, Advil) to control pain, unless another pain medicine was prescribed. [ NOTE : If you have chronic liver or kidney disease or ever had a stomach ulcer or GI bleeding, talk with your doctor before using these medicines.] 6) Keep your appointments for any further testing that may have been scheduled for you. Follow Up: Unless, given other advice, call your doctor on the next office day to advise of your fall and to schedule an appointment. Get Prompt Medical Attention if any of the following occur: -- Another unexplained fall -- Dizziness, fainting or seizure -- Severe headache -- Chest pain or shortness of breath -- Palpitations (very rapid or very slow or irregular heart beat) -- Blood in vomit, stools (black or red color) -- Weakness of an arm or leg or one side of the face -- Difficulty with speech or vision You have been given the following additional information: Fall, Uncertain Cause (Electronically signed by Maksim Contreras Dr. 09/05/2016 20:50)
--- NOTE | 2016-09-05 20:50 | ED MAR SUMMARY ---
..... Medication Administration Record [facility] [address] [place], [place] [id number] Patient: BRYAN ODEN Visit ID: [id number] 65y, F Weight: 62.1 kg Height/Length: 68 in BMI: 20.8 ALLERGIES: Cipro
--- NOTE | 2016-09-05 20:50 | ED MED RECONCILIATION SUMMARY ---
Patient: BRYAN ODEN Medication Reconciliation Report [facility] VisitID: [id number] [address] [place] [address] 65y, F Registration Date/Time: 09/04/2016 Weight: 62.1 kg Height/Length: 68 in. BMI: 20.8 ALLERGIES: Cipro The patient's Home Medications are listed below: CONTINUE TAKING THE FOLLOWING MEDICATIONS: Amitiza Oral Bactrim Oral Furosemide Oral, I ran out of this med Levothyroxine Sodium Oral Omeprazole Oral Oxycodone-Acetaminophen Oral The source(s) of the original Home Medication information: patient's family member patient The following Medications were given to the patient in the Emergency Department: None. The following Medications were prescribed to the patient: None.
--- NOTE | 2016-09-05 20:50 | ED MED RECONCILIATION SUMMARY ---
Patient: BRYAN ODEN Medication Reconciliation Report [facility] VisitID: [id number] [address] [place] [address] 65y, F Registration Date/Time: 09/04/2016 Weight: 62.1 kg Height/Length: 68 in. BMI: 20.8 ALLERGIES: Cipro The patient's Home Medications are listed below: CONTINUE TAKING THE FOLLOWING MEDICATIONS: Amitiza Oral Bactrim Oral Furosemide Oral, I ran out of this med Levothyroxine Sodium Oral Omeprazole Oral Oxycodone-Acetaminophen Oral The source(s) of the original Home Medication information: patient's family member patient The following Medications were given to the patient in the Emergency Department: None. The following Medications were prescribed to the patient: None.
== END 2016-09-04 17:31 | disposition home or self-care (01) ==
LOC: ED SRH 14:18
DX: R41.82 Altered mental status, unspecified (principal); Z79.899 Other long term (current) drug therapy; Z88.1 Allergy status to other antibiotic agents
CPT/HCPCS: 90100; 95059

== ENCOUNTER 2016-10-25 23:40 | Emergency (ER) | payer OTHER ==
--- NOTE | 2016-10-26 00:44 | ED ORDER SUMMARY ---
..... Patient: SANTA ODEN OrderSheet [facility] VisitID: [id number] [address] [place] [address] 66y, F Registration Date/Time: 10/25/2016 ORDER SHEET Weight: 64.8 kg (stated) Allergies: Cipro, Latex, Tramadol, Zoloft GENERAL ORDERS: EKG - ER Stat (00:24 10/26/2016 AMcQuoid ER Tech1 per protocol) (0:24 AMcQuoid ER Tech1) MEDICATION ORDERS: IV FLUIDS: Morphine IV 4 mg (HIGH ALERT MEDICATION, NOW) (00:12 10/26/2016 Kayode BALTAZAR) (0:21 Arjun R.N.) ORDER SHEET NOTES: [Electronically signed by Santa Reed MD (10:31 10/29/2016)] [Electronically signed by Rusty Ramirez R.N. (11:10/31/2016)] [Electronically locked/signed by Rusty Ramirez R.N. (11:10/31/2016)]
--- NOTE | 2016-10-26 00:44 | ED CLINICAL REPORT ---
Clinical Report - Physicians/Mid Levels [facility] [address] [place] [address] 10/25/2016 23:41 Patient: SANTA ODEN Time Seen: 23:50. Arrived- By ambulance. Historian- patient and EMS personnel. HISTORY OF PRESENT ILLNESS Chief Complaint: CHEST PAIN. "esophageal spasms". It is described as "pain" and it is described as located in the central chest area. This started just prior to arrival and is still present. Onset during after eating. At its maximum, severity described as moderate. When seen in the E.D., severity described as moderate. Modifying factors. Not worsened by anything. Not relieved by anything. The patient has had nausea. No vomiting, difficulty breathing or diaphoresis. (PT states she has had a problem with this for over 50 years. She states she has been worked up for her heart extensively, and has been told this is her esophagus causing the problem.). Similar symptoms previously: Many times. Recent medical care: Not recently seen/assessed. REVIEW OF SYSTEMS No fever, chills, cough, pedal edema or calf pain. No fainting episodes, headache, sore throat, blurred vision or abdominal pain. No black stools, difficulty with urination, skin rash, enlarged lymph nodes or joint pain. No bloody stools. All systems otherwise negative, except as recorded above. PAST HISTORY Problems: Gastroesophageal Reflux Disease. Fibromyalgia. Hydronephrosis. Esophageal Spasms. Renal Failure. Kidney Infection. Thyroid Disease. Additional Surgeries: Arthroscopy. Bladder reduction. Esophogeal myotomy. Hand surgery. Hysterectomy. Oophorectomy. Reimplantation of right kidney. Reimplantation of ureters bilateral. Total knee replacement left. Tubal Ligation. Medications: Sulfamethoxazole-Trimethoprim Oral. Omeprazole Oral. OxyCODONE HCl Oral. Nitroglycerin Sublingual. Levothyroxine Sodium Oral. Isosorbide Dinitrate Oral. Lasix Oral. Fluticasone Propionate Nasal. Fexofenadine HCl Oral. Allergies: Cipro. Latex. Tramadol. Zoloft. SOCIAL HISTORY Never smoker. Occasional alcohol use. No drug use. ADDITIONAL NOTES The nursing notes have been reviewed. PHYSICAL EXAM Vital Signs: 10/25/2016 23:46 BP: 179/90. HR: 67. RR: 22. O2 saturation: 99%. Temp: 98.4 F. Have been reviewed. Appearance: Alert. Oriented X3. No acute distress. (Pt appears moderately uncomfortable.). Eyes: Pupils equal, round and reactive to light. Eyes normal inspection. ENT: Nose normal. Neck: Normal inspection. CVS: Normal heart rate and rhythm. Heart sounds normal. Pulses normal. Respiratory: No respiratory distress. Breath sounds normal. Abdomen: Soft and nontender. Back: Normal external inspection. Skin: Skin warm and dry. Normal skin color. No rash. Normal skin turgor. Extremities: Extremities exhibit normal ROM. No lower extremity edema. Neuro: Oriented X 3. No motor deficit. No sensory deficit. LABS, X-RAYS, AND EKG Pulse Oximetry: 10/25/2016 23:46 O2 saturation: 99%. (FIO2 - room air). Interpretation: normal. PROGRESS AND PROCEDURES Course of Care: PT declined a cardiac work-up, other than EKG, stating that this has been ruled out multiple times, and with extensive testing. EKG was unremarkable. Pt was given a small dose of morphine, which she states works for her, and was found to be feeling better. Pain was consistent with multiple previous episodes. Patient counseled in person regarding the patient's stable condition, diagnosis and need for follow-up. Concerns were addressed. Old medical records reviewed. Disposition: Discharged. Condition: stable and improved. CLINICAL IMPRESSION Atypical chest pain INSTRUCTIONS Warnings: SEDATIVE MEDICATION: You were given sedative medication during your visit. Do not drive or operate dangerous machinery for 6 hours. GENERAL WARNINGS: Return or contact your physician immediately if your condition worsens or changes unexpectedly, if not improving as expected, or if other problems arise. Your Current Medications: CONTINUE TAKING THE FOLLOWING MEDICATIONS: Fexofenadine HCl Oral. Fluticasone Propionate Nasal. Isosorbide Dinitrate Oral. Lasix Oral. Levothyroxine Sodium Oral. Nitroglycerin Sublingual. Omeprazole Oral. OxyCODONE HCl Oral. Sulfamethoxazole-Trimethoprim Oral. Follow-up: Follow up with your doctor in two days if not better. Understanding of the discharge instructions verbalized by patient. (Electronically signed by Santa Reed MD 10/29/2016 10:31)
--- NOTE | 2016-10-26 00:44 | ED ORDER SUMMARY ---
..... Patient: SANTA ODEN OrderSheet [facility] VisitID: [id number] [address] [place] [address] 66y, F Registration Date/Time: 10/25/2016 ORDER SHEET Weight: 64.8 kg (stated) Allergies: Cipro, Latex, Tramadol, Zoloft GENERAL ORDERS: EKG - ER Stat (00:24 10/26/2016 AMcQuoid ER Tech1 per protocol) (0:24 AMcQuoid ER Tech1) MEDICATION ORDERS: IV FLUIDS: Morphine IV 4 mg (HIGH ALERT MEDICATION, NOW) (00:12 10/26/2016 Kayode BALTAZAR) (0:21 Arjun R.N.) ORDER SHEET NOTES: [Electronically signed by Santa Reed MD (10:31 10/29/2016)] [Electronically signed by Rusty Raimrez R.N. (11:10/31/2016)] [Electronically locked/signed by Rusty Ramirez R.N. (11:10/31/2016)]
--- NOTE | 2016-10-26 00:44 | ED NURSING NOTES ---
Clinical Report - Nurses [facility] [address] [place] [address] 10/25/2016 23:41 Patient: BRYAN ODEN TRIAGE Triage time 23:44. Acuity: LEVEL 3. Chief Complaint: CHEST DISCOMFORT. 23:55 10/25/16. Alert. No acute distress. SEPSIS SCREEN: Sepsis Screen. Negative (no infection suspected/documented). ROSI COMA SCORE: Rosi Coma Scale: 15- eyes open spontaneously (4); best verbal response- oriented x 4 (5); best motor response- obeys commands (6). --23:55 Rusty Ramirez R.N. 23:46 10/25/16. BP: 179/90. HR: 67. RR: 22. O2 saturation: 99% on room air. Temp: 98.4 F (oral). Pain level now 9/10. --23:55 Rusty Ramirez R.N. Weight: 64.8 kg stated. Height/Length: 68 inches Per Patient. BMI: 21.7. --23:48 Rusty Ramirez R.N. Medications Fexofenadine HCl Oral. --23:49 Rusty Ramirez R.Migel. Fluticasone Propionate Nasal. --23:49 Rusty Ramirez R.N. Lasix Oral. --23:49 Rusty Ramirez R.N. Isosorbide Dinitrate Oral. --23:49 Rusty Ramirez R.N. Levothyroxine Sodium Oral. --23:49 Rusty Ramirez R.N. Nitroglycerin Sublingual. --23:49 Rusty Ramirez R.N. OxyCODONE HCl Oral. --23:49 Rusty Ramirez R.N. Omeprazole Oral. --23:50 Rusty Ramirez R.N. Sulfamethoxazole-Trimethoprim Oral. --23:50 Rusty Ramirez R.N. Allergies Cipro. --23:50 Rusty Ramirez R.N. Latex. --23:50 Rusty Ramirez R.N. Tramadol. --23:50 Rusty Ramirez R.N. Zoloft. --23:50 Rusty Ramirez R.N. Medication/allergy information source: the patient. --23:55 Rusty Ramirez R.N. History ( pt states she has esophageal spasms and states this episode feels like all her previous episodes of esophageal spasms. Nitro x6 at home with no relief.). This started just prior to arrival. This is a recurrent problem. (1015PM). Treatment TECHNICAL SOLUTIONS CONSULTANT: (6 NITRO). BP: 130/p. HR: 72. O2 saturation: 99 % room air. Upon arrival patient awake. SOCIAL HX: Never smoker. Occasional alcohol use. No drug use. ABUSE ASSESSMENT: No report of abuse. FALL RISK ASSESSMENT: Fall risk assessment completed. No fall risk identified. NUTRITIONAL RISK ASSESSMENT: The nutritional risk assessment revealed no deficiencies. FUNCTIONAL ASSESSMENT: Functional assessment: no impairments noted. LEARNING NEEDS ASSESSMENT: The learning needs assessment revealed no barriers. SKIN INTEGRITY ASSESSMENT: Skin integrity risk assessment completed. No skin integrity risk identified. --23:55 Rusty Ramirez R.N. PROBLEMS: Fall. Hydronephrosis. Esophageal Spasms. Renal Failure. Contusion. Bladder Infections. Kidney Infection. Thyroid Disease. --23:54 Rusty Ramirez R.N. Gastroesophageal Reflux Disease. Fibromyalgia. --00:00 Rusty Ramirez R.N. ADDITIONAL SURGERIES: Arthroscopy. Bladder reduction. Esophogeal myotomy. Hand surgery. Hysterectomy. Oophorectomy. Reimplantation of right kidney. Reimplantation of ureters bilateral. Total knee replacement left. Tubal Ligation. --23:54 Rusty Ramirez R.N. Interventions ID band on patient. To treatment room. --23:55 Rusty Ramirez R.N. PHYSICAL ASSESSMENT 23:56 10/25/16. To room via stretcher. GENERAL / NEURO / PSYCH: Alert. Oriented X 4. Appears in no acute distress. RESPIRATORY: Respirations not labored. CVS: Pulses within normal limits. Capillary refill less than 2 seconds. GI / : Abdomen soft. SKIN: Skin is warm and dry. --23:56 Rusty Ramirez R.N. NURSING PROGRESS NOTES 23:59 10/25/16. The plan of care for this patient has been created. Patient gowned. Head of bed elevated. Call light placed in reach. Bed placed in lowest position. Patient ready for evaluation- chart flagged and ED physician notified. --23:59 Rusty Ramirez R.N. 00:06 10/26/2016 Site #1 started prior to arrival by EMS via IV in the right forearm with an 20g angiocath, with aseptic technique and good blood return; one attempt. Saline lock flushed with 10 mL saline. --00:21 Rusty Ramirez R.N. 00:16 10/26/2016 Morphine IVP 4 mg given over 2 minute(s) via site #1. Allergies verified, confirmed 5 rights and sedative warning given to the patient. IV patency established. IV site checked: no pain, redness, or swelling. IV flushed thoroughly pre- and post-medication administration. IVP given by RN. --00:21 Rusty Ramirez R.N. DISPOSITION / DISCHARGE 00:47 10/26/2016 Site #1 removed upon discharge. Catheter intact. Bandage applied. --00:52 Rusty Ramirez R.N. 00:53 10/26/16. Departure time: 0053. Cardiac rhythm: normal sinus rhythm. Condition at departure: unchanged and stable. No learning barriers present. Patient verbalized understanding. Written instructions provided in French. The patient was discharged by the physician. She was discharged home and accompanied by [facility] called for pt. She left the Emergency Department via ([employer]). --00:53 Rusty Ramirez R.N. 00:52 10/26/16. BP: 117/75. HR: 65. RR: 20. O2 saturation: 98% on room air. Pain level now 6/10. --00:53 Rusty Ramirez R.N. Locked/Released at 10/31/2016 11:05 by Rusty Ramirez R.N.
--- NOTE | 2016-10-26 00:44 | ED NURSING NOTES ---
Clinical Report - Nurses [facility] [address] [place] [address] 10/25/2016 23:41 Patient: BRYAN ODEN TRIAGE Triage time 23:44. Acuity: LEVEL 3. Chief Complaint: CHEST DISCOMFORT. 23:55 10/25/16. Alert. No acute distress. SEPSIS SCREEN: Sepsis Screen. Negative (no infection suspected/documented). ROSI COMA SCORE: Rosi Coma Scale: 15- eyes open spontaneously (4); best verbal response- oriented x 4 (5); best motor response- obeys commands (6). --23:55 Rusty Ramirez R.N. 23:46 10/25/16. BP: 179/90. HR: 67. RR: 22. O2 saturation: 99% on room air. Temp: 98.4 F (oral). Pain level now 9/10. --23:55 Rusty Ramirez R.N. Weight: 64.8 kg stated. Height/Length: 68 inches Per Patient. BMI: 21.7. --23:48 Rusty Ramirez R.N. Medications Fexofenadine HCl Oral. --23:49 Rusty Ramirez R.iMgel. Fluticasone Propionate Nasal. --23:49 Rusty Ramirez R.N. Lasix Oral. --23:49 Rusty Ramirez R.N. Isosorbide Dinitrate Oral. --23:49 Rusty Ramirez R.N. Levothyroxine Sodium Oral. --23:49 Rusty Ramirez R.N. Nitroglycerin Sublingual. --23:49 Rusty Ramirez R.N. OxyCODONE HCl Oral. --23:49 Rusty Ramirez R.N. Omeprazole Oral. --23:50 Rusty Ramirez R.N. Sulfamethoxazole-Trimethoprim Oral. --23:50 Rusty Ramirez R.N. Allergies Cipro. --23:50 Rusty Ramirez R.N. Latex. --23:50 Rusty Ramirez R.N. Tramadol. --23:50 Rusty Ramirez R.N. Zoloft. --23:50 Rusty Ramirez R.N. Medication/allergy information source: the patient. --23:55 Rusty Ramirez R.N. History ( pt states she has esophageal spasms and states this episode feels like all her previous episodes of esophageal spasms. Nitro x6 at home with no relief.). This started just prior to arrival. This is a recurrent problem. (1015PM). Treatment RESERVATIONS SALES AGENT: (6 NITRO). BP: 130/p. HR: 72. O2 saturation: 99 % room air. Upon arrival patient awake. SOCIAL HX: Never smoker. Occasional alcohol use. No drug use. ABUSE ASSESSMENT: No report of abuse. FALL RISK ASSESSMENT: Fall risk assessment completed. No fall risk identified. NUTRITIONAL RISK ASSESSMENT: The nutritional risk assessment revealed no deficiencies. FUNCTIONAL ASSESSMENT: Functional assessment: no impairments noted. LEARNING NEEDS ASSESSMENT: The learning needs assessment revealed no barriers. SKIN INTEGRITY ASSESSMENT: Skin integrity risk assessment completed. No skin integrity risk identified. --23:55 Rusty Ramirez R.N. PROBLEMS: Fall. Hydronephrosis. Esophageal Spasms. Renal Failure. Contusion. Bladder Infections. Kidney Infection. Thyroid Disease. --23:54 Rusty Ramirez R.N. Gastroesophageal Reflux Disease. Fibromyalgia. --00:00 Rusty Ramirez R.N. ADDITIONAL SURGERIES: Arthroscopy. Bladder reduction. Esophogeal myotomy. Hand surgery. Hysterectomy. Oophorectomy. Reimplantation of right kidney. Reimplantation of ureters bilateral. Total knee replacement left. Tubal Ligation. --23:54 Rusty Ramirez R.N. Interventions ID band on patient. To treatment room. --23:55 Rusty Ramirez R.N. PHYSICAL ASSESSMENT 23:56 10/25/16. To room via stretcher. GENERAL / NEURO / PSYCH: Alert. Oriented X 4. Appears in no acute distress. RESPIRATORY: Respirations not labored. CVS: Pulses within normal limits. Capillary refill less than 2 seconds. GI / : Abdomen soft. SKIN: Skin is warm and dry. --23:56 Rusty Ramirez R.N. NURSING PROGRESS NOTES 23:59 10/25/16. The plan of care for this patient has been created. Patient gowned. Head of bed elevated. Call light placed in reach. Bed placed in lowest position. Patient ready for evaluation- chart flagged and ED physician notified. --23:59 Rusty Ramirez R.N. 00:06 10/26/2016 Site #1 started prior to arrival by EMS via IV in the right forearm with an 20g angiocath, with aseptic technique and good blood return; one attempt. Saline lock flushed with 10 mL saline. --00:21 Rusty Ramirez R.N. 00:16 10/26/2016 Morphine IVP 4 mg given over 2 minute(s) via site #1. Allergies verified, confirmed 5 rights and sedative warning given to the patient. IV patency established. IV site checked: no pain, redness, or swelling. IV flushed thoroughly pre- and post-medication administration. IVP given by RN. --00:21 Rusty Ramirez R.N. DISPOSITION / DISCHARGE 00:47 10/26/2016 Site #1 removed upon discharge. Catheter intact. Bandage applied. --00:52 Rusty Ramirez R.N. 00:53 10/26/16. Departure time: 0053. Cardiac rhythm: normal sinus rhythm. Condition at departure: unchanged and stable. No learning barriers present. Patient verbalized understanding. Written instructions provided in Slovenian. The patient was discharged by the physician. She was discharged home and accompanied by [facility] called for pt. She left the Emergency Department via ([employer]). --00:53 Rusty Ramirez R.N. 00:52 10/26/16. BP: 117/75. HR: 65. RR: 20. O2 saturation: 98% on room air. Pain level now 6/10. --00:53 Rusty Ramirez R.N. Locked/Released at 10/31/2016 11:05 by Rusty Ramirez R.N.
--- NOTE | 2016-10-31 11:06 | ED MAR SUMMARY ---
..... Medication Administration Record [facility] [address] [place] [address] Patient: BRYAN ODEN Visit ID: [id number] 66y, F Weight: 64.8 kg Height/Length: 68 in BMI: 21.7 ALLERGIES: Zoloft, Tramadol, Latex, Cipro Given 00:16 10/26/2016 Rusty Ramirez R.N. Medication Administered: MORPHINE [IVP], Dose: 4 mg IVP over 2 minute(s), Site: #1 right forearm. Medication Ordered: Morphine IV 4 mg (HIGH ALERT MEDICATION, NOW).
--- NOTE | 2016-10-31 11:06 | ED MAR SUMMARY ---
..... Medication Administration Record [facility] [address] [place] [address] Patient: BRYAN ODEN Visit ID: [id number] 66y, F Weight: 64.8 kg Height/Length: 68 in BMI: 21.7 ALLERGIES: Zoloft, Tramadol, Latex, Cipro Given 00:16 10/26/2016 Rusty Ramirez R.N. Medication Administered: MORPHINE [IVP], Dose: 4 mg IVP over 2 minute(s), Site: #1 right forearm. Medication Ordered: Morphine IV 4 mg (HIGH ALERT MEDICATION, NOW).
--- NOTE | 2016-10-31 11:06 | ED DISCHARGE INSTRUCTIONS ---
Patient: SANTA ODEN General Instructions [facility] VisitID: [id number] [place] [address] 66y, F Registration Date/Time: 10/25/2016 Atypical chest pain INSTRUCTIONS Warnings: SEDATIVE MEDICATION: You were given sedative medication during your visit. Do not drive or operate dangerous machinery for 6 hours. GENERAL WARNINGS: Return or contact your physician immediately if your condition worsens or changes unexpectedly, if not improving as expected, or if other problems arise. Your Current Medications: CONTINUE TAKING THE FOLLOWING MEDICATIONS: Fexofenadine HCl Oral. Fluticasone Propionate Nasal. Isosorbide Dinitrate Oral. Lasix Oral. Levothyroxine Sodium Oral. Nitroglycerin Sublingual. Omeprazole Oral. OxyCODONE HCl Oral. Sulfamethoxazole-Trimethoprim Oral. Follow-up: Follow up with your doctor in two days if not better. Understanding of the discharge instructions verbalized by patient. ADDITIONAL INFORMATION Chest Pain, Uncertain Cause Chest pain can happen for a number of reasons. Sometimes the cause can not be determined. If yourcondition does not seem serious, and your pain does not appear to be coming from your heart, your doctor may recommend watching it closely. Sometimes the signs of a serious problem take more time to appear. Therefore, watch for the warning signs listed below. Home care After your visit, follow these recommendations: Rest today and avoid strenuous activity. Take any prescribed medicine as directed. Follow-up care Follow up with your doctor or this facility as instructed or if you do not start to feel better within 24 hours. Call 911 Get immediate medical attention if any of the following occur: A change in the type of pain: if it feels different, becomes more severe, lasts longer, or begins to spread into your shoulder, arm, neck, jaw or back Shortness of breath or increased pain with breathing Weakness, dizziness, or fainting Rapid heart beat Get prompt medical attention Call your doctor right away if any of the following occur: Cough with dark colored sputum (phlegm) or blood Fever of 100.4F(38C) or higher, or as directed by your health care provider Swelling, pain or redness in one leg Esophageal Spasm The esophagus is a muscular tube that joins your mouth to your stomach. Normal waves of contraction help food move down the esophagus to reach the stomach. Esophageal spasms are abnormal contractions of these muscles. When the muscles are in spasm it may feel like the food is stuck and wont go down. It may cause a feeling of heartburn or a squeezing type of chest pain that can feel just like heart pain (angina). The pain may spread to the neck, arm or back. If you try to swallow more food or liquid during a spasm, it may come back up within seconds. The cause of esophageal spasm is not known but it is more common in people with acid reflux disease (also called "GERD" or "Esophagitis"). Very hot or very cold foods or foods that are not chewed enough before swallowing may trigger an episode. Special tests may be ordered to confirm the diagnosis if there is doubt. Medicine is used to prevent or treat symptoms in most cases. Severe symptoms can be treated with surgery. Home Care: If you are prone to acid reflux and heartburn symptoms, your doctor may prescribe acid-blocking medicine. If not, you can use over the counter medicines as a preventive if you get symptoms often. The following medicines are available without a prescription: Antacids: Neutralize stomach acid. (such as Gaviscon, Mylanta, Tums or Rolaids) Acid-Blockers: Reduce the production of acid in the stomach. (Axid, Pepcid-AC, Tagamet-HB, Zantac, Prilosec-OTC). Learn to recognize if certain foods are causing your spasm and avoid these. Avoid very hot and very cold foods if this is a trigger for you. Eat slowly and chew food well before swallowing. Follow Up with your doctor or as advised by our staff. Get Prompt Medical Attention if any of the following occur: Chest pain or pain in the neck, back, shoulder or arm that does not respond to the treatment recommended Food that feels "stuck" in the esophagus for more than 30 minutes Inability to swallow solid or liquids for more than 30 minutes Symptoms that feel like esophageal spasm but occur with heavy sweating, dizziness, fainting or shortness of breath Change in the usual patterns of your symptoms of esophageal spasm (new pattern of spreading to the neck, back, shoulder or arm; pain that is more severe than usual) You have been given the following additional information: Chest Pain, Uncertain Cause Esophageal Spasm (Electronically signed by Santa Reed MD 10/29/2016 10:31)
--- NOTE | 2016-10-31 11:06 | ED MED RECONCILIATION SUMMARY ---
Patient: BRYAN ODEN Medication Reconciliation Report [facility] VisitID: [id number] [address] [place] [address] 66y, F Registration Date/Time: 10/25/2016 Weight: 64.8 kg Height/Length: 68 in. BMI: 21.7 ALLERGIES: Cipro, Latex, Tramadol, Zoloft The patient's Home Medications are listed below: CONTINUE TAKING THE FOLLOWING MEDICATIONS: Fexofenadine HCl Oral Fluticasone Propionate Nasal Isosorbide Dinitrate Oral Lasix Oral Levothyroxine Sodium Oral Nitroglycerin Sublingual Omeprazole Oral OxyCODONE HCl Oral Sulfamethoxazole-Trimethoprim Oral The source(s) of the original Home Medication information: patient The following Medications were given to the patient in the Emergency Department: Morphine [IVP] IVP 4 mg, administered: 10/26/2016 12:16:00 AM The following Medications were prescribed to the patient: None.
--- NOTE | 2016-10-31 11:06 | ED MED RECONCILIATION SUMMARY ---
Patient: BRYAN ODEN Medication Reconciliation Report [facility] VisitID: [id number] [address] [place] [address] 66y, F Registration Date/Time: 10/25/2016 Weight: 64.8 kg Height/Length: 68 in. BMI: 21.7 ALLERGIES: Cipro, Latex, Tramadol, Zoloft The patient's Home Medications are listed below: CONTINUE TAKING THE FOLLOWING MEDICATIONS: Fexofenadine HCl Oral Fluticasone Propionate Nasal Isosorbide Dinitrate Oral Lasix Oral Levothyroxine Sodium Oral Nitroglycerin Sublingual Omeprazole Oral OxyCODONE HCl Oral Sulfamethoxazole-Trimethoprim Oral The source(s) of the original Home Medication information: patient The following Medications were given to the patient in the Emergency Department: Morphine [IVP] IVP 4 mg, administered: 10/26/2016 12:16:00 AM The following Medications were prescribed to the patient: None.
== END 2016-10-26 00:53 | disposition home or self-care (01) ==
LOC: ED SRH 23:40
DX: R07.89 Other chest pain (principal); K21.9 Gastro-esophageal reflux disease without esophagitis; K22.4 Dyskinesia of esophagus; Z88.8 Allergy status to other drugs, medicaments and biological substances; Z88.1 Allergy status to other antibiotic agents; Z79.899 Other long term (current) drug therapy; Z88.5 Allergy status to narcotic agent

== ENCOUNTER 2016-12-05 01:55 | Emergency (ER) | payer OTHER ==
--- NOTE | 2016-12-05 02:24 | ED CLINICAL REPORT ---
Clinical Report - Physicians/Mid Levels [facility] [address] [place] [address] 12/05/2016 1:56 Patient: BRYAN ODEN Time Seen: 02:07; initial patient contact. Arrived- By private vehicle. Historian- patient. HISTORY OF PRESENT ILLNESS Chief Complaint: DENTAL PAIN. This started several days ago and is still present and worsening. It was gradual in onset and has been constant. Pain described as moderate. The patient has had toothache and jaw pain. No swollen jaw or face or facial pain. Similar symptoms previously: Many times. Recent medical care: The patient was seen recently in the office. ( dentist. Is on Amox 1g BID and Oxycodone). REVIEW OF SYSTEMS No fever, nausea or vomiting. PAST HISTORY Atypical Chest Pain. Gastroesophageal Reflux Disease. Fibromyalgia. Fall. Hydronephrosis. Esophageal Spasms. Renal Failure. Contusion. Bladder Infections. Kidney Infection. Thyroid Disease. ADDITIONAL SURGERIES: Arthroscopy. Bladder reduction. Esophogeal myotomy. Hand surgery. Hysterectomy. Oophorectomy. Reimplantation of right kidney. Reimplantation of ureters bilateral. Total knee replacement left. Tubal Ligation. Medications: Fexofenadine HCl Oral. Lasix Oral. Nitroglycerin Sublingual. OxyCODONE HCl Oral. Amoxicillin Oral (Capsule 500 mg) 2 capsules, bid. Allergies: Cipro. Latex. Tramadol. Zoloft. SOCIAL HISTORY Never smoker. Alcohol use. Patient is a recovering alcoholic. No drug use. ADDITIONAL NOTES The nursing notes have been reviewed. PHYSICAL EXAM Vital Signs: 12/05/2016 02:04 BP: 124/69. HR: 66. RR: 16. O2 saturation: 100%. Temp: 98 F. Have been reviewed as normal. Appearance: Alert. No acute distress. Head: Normal external inspection. ENT: Moderate, extensive dental decay. Moderate dental tenderness of multiple teeth (lower right first premolar and second premolar, lower right first molar). No trismus present. The mucous membranes are not dry. Neck: No adenopathy. Skin: Normal skin color. No rash. Neuro: Oriented X 3. PROGRESS AND PROCEDURES Dental Nerve Block: Per protocol, time-out completed immediately before the procedure. Inferior Alveolar Block. Procedure performed on the right side. Landmarks were identified. Topical anesthetic applied. Total volume of 5 mL 2% Lidocaine and 0.5% Marcaine infiltrated using a 23-gauge needle. Patient cooperative during procedure. No complications encountered. Excellent anesthesia achieved. Disposition: Discharged home in good and improved condition. Condition: good. CLINICAL IMPRESSION Moderate dental pain. INSTRUCTIONS Your Current Medications: CONTINUE TAKING THE FOLLOWING MEDICATIONS: Amoxicillin Oral : Capsule 500 mg, 2 capsules bid. Fexofenadine HCl Oral. Lasix Oral. Nitroglycerin Sublingual. OxyCODONE HCl Oral. Follow-up: Blood pressure screening was not performed during this visit because the patient has an active diagnosis of hypertension. (Electronically signed by Maksim Contreras Dr. 12/05/2016 2:34)
--- NOTE | 2016-12-05 02:24 | ED NURSING NOTES ---
Clinical Report - Nurses [facility] [address] [place] [address] 12/05/2016 1:56 Patient: BRYAN ODEN TRIAGE Triage time 02:00. Acuity: LEVEL 4. Chief Complaint: RIGHT LOWER TOOTHACHE and CHIPPED TOOTH and JAW PAIN. --02:12 Pauline De La Rosa R.N. 02:04 12/05/16. BP: 124/69 taken on the left arm, while lying. HR: 66. RR: 16 (regular and unlabored). O2 saturation: 100% on room air. Temp: 98 F (oral). --02:12 Pauline De La Rosa R.N. 02:34 12/05/16. Pain level now 7/10. --02:34 Pauline De La Rosa R.N. Weight: 64.8 kg stated. Height/Length: 68 inches Per Patient. BMI: 21.7. --02:05 Pauline De La Rosa R.N. Medications Amoxicillin Oral (Capsule 500 mg) 2 capsules, bid. --02:08 Pauline De La Rosa R.N. OxyCODONE HCl Oral. --02:09 Pauline De La Rosa R.N. Nitroglycerin Sublingual. --02:09 Pauline De La Rosa R.N. Lasix Oral. --02:10 Pauline De La Rosa R.N. Fexofenadine HCl Oral. --02:10 Pauline De La Rosa R.N. Allergies Cipro. Latex. Tramadol. Zoloft. --02:08 Pauline De La Rosa R.N. History Arrived by private vehicle. Historian: patient. Accompanied by family. Primary physician (liam). This started just prior to arrival. Started while sleeping (just started tonight). She has a dental appointment scheduled (January 23). PAST MEDICAL HX: Immunizations: up-to-date. SOCIAL HX: Never smoker. Alcohol use. Patient is a recovering alcoholic. No drug use. No infectious disease exposure. ABUSE ASSESSMENT: No report of abuse. SELF HARM ASSESSMENT: A self harm assessment was performed. The patient answered "no" to the question "Have you recently felt down, depressed, or hopeless?", "Have you noticed less interest or pleasure in doing things?", "Do you have thoughts of harming or killing yourself?", "Are you here because you tried to hurt yourself?", "Have you ever tried to hurt yourself before today?", "Have you recently had thoughts about harming or killing others?" and "Do you have any dangerous items in your possession?". FALL RISK ASSESSMENT: Fall risk assessment completed. No fall risk identified. NUTRITIONAL RISK ASSESSMENT: The nutritional risk assessment revealed no deficiencies. FUNCTIONAL ASSESSMENT: Functional assessment: no impairments noted. LEARNING NEEDS ASSESSMENT: The learning needs assessment revealed no barriers. SKIN INTEGRITY ASSESSMENT: Skin integrity risk assessment completed. No skin integrity risk identified. --02:12 Pauline De La Rosa R.N. PROBLEMS: Atypical Chest Pain. Gastroesophageal Reflux Disease. Fibromyalgia. Fall. Hydronephrosis. Esophageal Spasms. Renal Failure. Contusion. Bladder Infections. Kidney Infection. Thyroid Disease. --02:10 Pauline De La Rosa R.N. ADDITIONAL SURGERIES: Arthroscopy. Bladder reduction. Esophogeal myotomy. Hand surgery. Hysterectomy. Oophorectomy. Reimplantation of right kidney. Reimplantation of ureters bilateral. Total knee replacement left. Tubal Ligation. --02:10 Pauline De La Rosa R.N. Interventions ID band on patient. --02:12 Pauline De La Rosa R.N. PHYSICAL ASSESSMENT Ambulatory to room. GENERAL / NEURO / PSYCH: Alert. Oriented X 4. Appears in no acute distress. HEENT: Pupils equal, round and reactive to light. Pharynx within normal limits. Voice within normal limits. Severe dental tenderness of multiple teeth (right lower molar). Extensive dental decay (right lower molar area). Mucous membranes are pink. RESPIRATORY: Respirations not labored. CVS: Capillary refill less than 2 seconds. SKIN: Skin is warm and dry. Normal skin turgor. --02:13 Pauline De La Rosa R.N. NURSING PROGRESS NOTES Two patient identifiers checked. Call light placed in reach. Side rails up x 1. Bed placed in lowest position. Brakes of bed on. --02:15 Pauline De La Rosa R.N. Patient ready for evaluation- chart flagged. --02:15 Pauline De La Rosa R.N. DISPOSITION / DISCHARGE Departure time: 228. Condition at departure: improved and stable. No learning barriers present. Discharge instructions provided and reviewed with the patient. Patient and spouse verbalized understanding. Written instructions provided in [place]. The patient was discharged home and accompanied by spouse. She left the Emergency Department ambulatory and via private vehicle. Spouse driving. --02:33 Pauline De La Rosa R.N. 02:32 12/05/16. BP: deferred. HR: deferred. RR: deferred. O2 saturation: deferred. Temp: deferred. Pain level now deferred. --02:33 Pauline De La Rosa R.N. Locked/Released at 12/05/2016 2:34 by Pauline De La Rosa R.N.
--- NOTE | 2016-12-05 02:24 | ED CLINICAL REPORT ---
Clinical Report - Physicians/Mid Levels [facility] [address] [place] [address] 12/05/2016 1:56 Patient: BRYAN ODEN Time Seen: 02:07; initial patient contact. Arrived- By private vehicle. Historian- patient. HISTORY OF PRESENT ILLNESS Chief Complaint: DENTAL PAIN. This started several days ago and is still present and worsening. It was gradual in onset and has been constant. Pain described as moderate. The patient has had toothache and jaw pain. No swollen jaw or face or facial pain. Similar symptoms previously: Many times. Recent medical care: The patient was seen recently in the office. ( dentist. Is on Amox 1g BID and Oxycodone). REVIEW OF SYSTEMS No fever, nausea or vomiting. PAST HISTORY Atypical Chest Pain. Gastroesophageal Reflux Disease. Fibromyalgia. Fall. Hydronephrosis. Esophageal Spasms. Renal Failure. Contusion. Bladder Infections. Kidney Infection. Thyroid Disease. ADDITIONAL SURGERIES: Arthroscopy. Bladder reduction. Esophogeal myotomy. Hand surgery. Hysterectomy. Oophorectomy. Reimplantation of right kidney. Reimplantation of ureters bilateral. Total knee replacement left. Tubal Ligation. Medications: Fexofenadine HCl Oral. Lasix Oral. Nitroglycerin Sublingual. OxyCODONE HCl Oral. Amoxicillin Oral (Capsule 500 mg) 2 capsules, bid. Allergies: Cipro. Latex. Tramadol. Zoloft. SOCIAL HISTORY Never smoker. Alcohol use. Patient is a recovering alcoholic. No drug use. ADDITIONAL NOTES The nursing notes have been reviewed. PHYSICAL EXAM Vital Signs: 12/05/2016 02:04 BP: 124/69. HR: 66. RR: 16. O2 saturation: 100%. Temp: 98 F. Have been reviewed as normal. Appearance: Alert. No acute distress. Head: Normal external inspection. ENT: Moderate, extensive dental decay. Moderate dental tenderness of multiple teeth (lower right first premolar and second premolar, lower right first molar). No trismus present. The mucous membranes are not dry. Neck: No adenopathy. Skin: Normal skin color. No rash. Neuro: Oriented X 3. PROGRESS AND PROCEDURES Dental Nerve Block: Per protocol, time-out completed immediately before the procedure. Inferior Alveolar Block. Procedure performed on the right side. Landmarks were identified. Topical anesthetic applied. Total volume of 5 mL 2% Lidocaine and 0.5% Marcaine infiltrated using a 23-gauge needle. Patient cooperative during procedure. No complications encountered. Excellent anesthesia achieved. Disposition: Discharged home in good and improved condition. Condition: good. CLINICAL IMPRESSION Moderate dental pain. INSTRUCTIONS Your Current Medications: CONTINUE TAKING THE FOLLOWING MEDICATIONS: Amoxicillin Oral : Capsule 500 mg, 2 capsules bid. Fexofenadine HCl Oral. Lasix Oral. Nitroglycerin Sublingual. OxyCODONE HCl Oral. Follow-up: Blood pressure screening was not performed during this visit because the patient has an active diagnosis of hypertension. (Electronically signed by Maksim Contreras Dr. 12/05/2016 2:34)
--- NOTE | 2016-12-05 02:34 | ED MED RECONCILIATION SUMMARY ---
Patient: BRYAN ODEN Medication Reconciliation Report [facility] VisitID: [id number] [address] [place] [address] 66y, F Registration Date/Time: 12/05/2016 Weight: 64.8 kg Height/Length: 68 in. BMI: 21.7 ALLERGIES: Cipro, Latex, Tramadol, Zoloft The patient's Home Medications are listed below: CONTINUE TAKING THE FOLLOWING MEDICATIONS: Amoxicillin Oral (500 mg) 2 capsules, bid Fexofenadine HCl Oral Lasix Oral Nitroglycerin Sublingual OxyCODONE HCl Oral The source(s) of the original Home Medication information: Not obtained. The following Medications were given to the patient in the Emergency Department: None. The following Medications were prescribed to the patient: None.
--- NOTE | 2016-12-05 02:34 | ED DISCHARGE INSTRUCTIONS ---
Patient: BRYAN ODEN General Instructions [facility] VisitID: [id number] [place] [address] 66y, F Registration Date/Time: 12/05/2016 Moderate dental pain. INSTRUCTIONS Your Current Medications: CONTINUE TAKING THE FOLLOWING MEDICATIONS: Amoxicillin Oral : Capsule 500 mg, 2 capsules bid. Fexofenadine HCl Oral. Lasix Oral. Nitroglycerin Sublingual. OxyCODONE HCl Oral. Follow-up: Blood pressure screening was not performed during this visit because the patient has an active diagnosis of hypertension. ADDITIONAL INFORMATION Dental Pain A crack or cavity in the tooth, which exposes the sensitive inner area of the tooth can cause tooth pain. An infection in the gum or the root of the tooth can cause pain and swelling. The pain is often made worse by drinking hot or cold fluids, or biting on hard foods. Pain may spread from the tooth to the ear or jaw on the same side. Home Care: Avoid hot and cold foods and liquids since your tooth may be sensitive to temperature changes. If your tooth is chipped or cracked, or if there is a large open cavity, apply OIL OF CLOVES (available dlls-vmu-ehytoua in drug stores) directly to the tooth to reduce pain. Some pharmacies carry an ppsq-zyz-zcxuwfj "toothache kit." This contains a paste, which can be applied over the exposed tooth to decrease sensitivity. A cold pack on your jaw over the sore area may help reduce pain. You may use acetaminophen (Tylenol) or ibuprofen (Motrin, Advil) to control pain, unless another medicine was prescribed. [ NOTE: If you have chronic liver or kidney disease or ever had a stomach ulcer or GI bleeding, talk with your doctor before using these medicines.] If you have signs of an infection, an antibiotic will be given. Take it as directed. Follow-Up as directed with a dentist. Your pain may go away with the treatment given. However, only a dentist can fully evaluate and treat the cause and prevent the pain from coming back again. TOOTHACHE IS A SIGN OF DISEASE IN YOUR TOOTH AND SHOULD BE EXAMINED AND TREATED BY A DENTIST. Get Prompt Medical Attention if any of the following occur: Your face becomes swollen or red Pain worsens or spreads to the neck Fever over 100.4 F (38.0 C) Unusual drowsiness; headache or stiff neck; weakness or fainting Pus drains from the tooth Difficulty swallowing or breathing You have been given the following additional information: Dental Pain (Electronically signed by Maksim Contreras Dr. 12/05/2016 2:34)
--- NOTE | 2016-12-05 02:34 | ED DISCHARGE INSTRUCTIONS ---
Patient: BRYAN ODEN General Instructions [facility] VisitID: [id number] [place] [address] 66y, F Registration Date/Time: 12/05/2016 Moderate dental pain. INSTRUCTIONS Your Current Medications: CONTINUE TAKING THE FOLLOWING MEDICATIONS: Amoxicillin Oral : Capsule 500 mg, 2 capsules bid. Fexofenadine HCl Oral. Lasix Oral. Nitroglycerin Sublingual. OxyCODONE HCl Oral. Follow-up: Blood pressure screening was not performed during this visit because the patient has an active diagnosis of hypertension. ADDITIONAL INFORMATION Dental Pain A crack or cavity in the tooth, which exposes the sensitive inner area of the tooth can cause tooth pain. An infection in the gum or the root of the tooth can cause pain and swelling. The pain is often made worse by drinking hot or cold fluids, or biting on hard foods. Pain may spread from the tooth to the ear or jaw on the same side. Home Care: Avoid hot and cold foods and liquids since your tooth may be sensitive to temperature changes. If your tooth is chipped or cracked, or if there is a large open cavity, apply OIL OF CLOVES (available pyuc-ebl-yrgskgz in drug stores) directly to the tooth to reduce pain. Some pharmacies carry an xltp-sts-[id number] "toothache kit." This contains a paste, which can be applied over the exposed tooth to decrease sensitivity. A cold pack on your jaw over the sore area may help reduce pain. You may use acetaminophen (Tylenol) or ibuprofen (Motrin, Advil) to control pain, unless another medicine was prescribed. [ NOTE: If you have chronic liver or kidney disease or ever had a stomach ulcer or GI bleeding, talk with your doctor before using these medicines.] If you have signs of an infection, an antibiotic will be given. Take it as directed. Follow-Up as directed with a dentist. Your pain may go away with the treatment given. However, only a dentist can fully evaluate and treat the cause and prevent the pain from coming back again. TOOTHACHE IS A SIGN OF DISEASE IN YOUR TOOTH AND SHOULD BE EXAMINED AND TREATED BY A DENTIST. Get Prompt Medical Attention if any of the following occur: Your face becomes swollen or red Pain worsens or spreads to the neck Fever over 100.4 F (38.0 C) Unusual drowsiness; headache or stiff neck; weakness or fainting Pus drains from the tooth Difficulty swallowing or breathing You have been given the following additional information: Dental Pain (Electronically signed by Maksim Contreras Dr. 12/05/2016 2:34)
--- NOTE | 2016-12-05 02:34 | ED MED RECONCILIATION SUMMARY ---
Patient: BRYAN ODEN Medication Reconciliation Report [facility] VisitID: [id number] [address] [place] [address] 66y, F Registration Date/Time: 12/05/2016 Weight: 64.8 kg Height/Length: 68 in. BMI: 21.7 ALLERGIES: Cipro, Latex, Tramadol, Zoloft The patient's Home Medications are listed below: CONTINUE TAKING THE FOLLOWING MEDICATIONS: Amoxicillin Oral (500 mg) 2 capsules, bid Fexofenadine HCl Oral Lasix Oral Nitroglycerin Sublingual OxyCODONE HCl Oral The source(s) of the original Home Medication information: Not obtained. The following Medications were given to the patient in the Emergency Department: None. The following Medications were prescribed to the patient: None.
--- NOTE | 2016-12-05 02:34 | ED MAR SUMMARY ---
..... Medication Administration Record [facility] [address] [place] [id number] Patient: BRYAN ODEN Visit ID: [id number] 66y, F Weight: 64.8 kg Height/Length: 68 in BMI: 21.7 ALLERGIES: Cipro, Latex, Tramadol, Zoloft
--- NOTE | 2016-12-05 02:34 | ED MAR SUMMARY ---
..... Medication Administration Record [facility] [address] [place], [place] [id number] Patient: BRYAN ODEN Visit ID: [id number] 66y, F Weight: 64.8 kg Height/Length: 68 in BMI: 21.7 ALLERGIES: Cipro, Latex, Tramadol, Zoloft
== END 2016-12-05 02:29 | disposition home or self-care (01) ==
LOC: ED SRH 01:55
DX: K08.89 Other specified disorders of teeth and supporting structures (principal); E07.9 Disorder of thyroid, unspecified; Z79.899 Other long term (current) drug therapy; Z79.891 Long term (current) use of opiate analgesic; Z88.1 Allergy status to other antibiotic agents; Z88.5 Allergy status to narcotic agent; Z88.6 Allergy status to analgesic agent; Z91.040 Latex allergy status